=== PATIENT | female | born 1960 | race Caucasian/White ===

== ENCOUNTER 2023-07-29 23:33 | Emergency (ER) | payer OTHER, SELFPAY ==
[2023-07-29 23:36] VITALS: BP 173/93; PULSE 100; RESP 18; TEMP 36.8; O2SAT 99
--- NOTE | 2023-07-29 23:53 | PC.NURSE ---
pt presents to ED because patient states this morning while at work she was sitting on the toilet because she felt like she was going to have a bowel movement, pt states she wasn't able to go but then afterwards had a large amount of bright red blood come out and filled the toilet bowel. pt states after that she felt like she was going to pass out and began to feel dizzy and get sweaty but co-worker was with patient and sat her down. patient states that she was able to have a small bowel movement but then diarrhea following. pt states now she keeps having blood gush out throughout the day. pt states she has no hx of gi bleeds in the past. pt is c/o lower abdominal pain at this time.
--- NOTE | 2023-07-29 23:56 | CT_ITS ---
The [address] [address] Patient Name: ROS GARCIA MRN: [id number] date: 1960 Sex: F Assigned Patient Location: ER Current Patient Location: ER Accession/Order Number: [id number] Exam Date: 07/29/2023 23:58 Report Date: 07/30/2023 01:11 At the request of: MARTIN LAMAR Procedure: CT angio abdomen pelvis CT ABDOMEN AND PELVIS WITH CONTRAST: INDICATION: GI BLEEDING. COMPARISON: 08/29/2019. TECHNIQUE:Multiple thin section transaxial slices were acquired through the abdomen and pelvis with intravenous contrast. Coronal and sagittal reconstructed images were reviewed. Images were obtained per CT angiogram protocol. Additional 3-D post processed reconstructed images were reviewed. FINDINGS: LOWER CHEST: The lower chest is unremarkable. LIVER: There are cysts in the left hepatic lobe. GALLBLADDER AND BILIARY SYSTEM: No obvious ductal dilation. No calcified stones. SPLEEN: The spleen is unremarkable. PANCREAS: There is a tiny cyst in the body of the pancreas measuring 4 mm. This was not definitively visualized previously. However, that examination was done without intravenous contrast. ADRENAL GLANDS: The adrenal glands are unremarkable. KIDNEYS AND URETERS: There is no hydronephrosis of the kidneys.No obstructing urologic calcifications are present. VASCULATURE: The abdominal aorta is normal in caliber without aneurysm or dissection. There is mild atherosclerotic plaque distally. The celiac, superior and inferior mesenteric arteries are patent. The renal arteries are patent. PERITONEUM/RETROPERITONEUM: Peritoneum/retroperitoneum is unremarkable. LYMPH NODES: No suspicious lymphadenopathy. GASTROINTESTINAL TRACT: The bowel is normal in caliber.There is diffuse circumferential wall thickening associated with the transverse, descending and sigmoid colon consistent with diffuse colitis.The appendix is not well delineated on this examination and may be absent or diminutive. BLADDER: The urinary bladder is unremarkable. REPRODUCTIVE SYSTEM: The uterus is absent. BODY WALL: There is a tiny fat-containing umbilical hernia. BONES: Minimal retrolisthesis is present at the L5-S1 level. CT/CT angio abdomen pelvis IMPRESSION: 1. Circumferential wall thickening of the transverse, descending and sigmoid colon consistent with colitis. 2. Mild atherosclerotic plaque in the distal abdominal aorta. Unremarkable CT angiogram of the abdominal aorta and mesenteric vessels otherwise. 3. 4 mm size cystic density in the pancreatic body. This could be followed up with surveillance CT imaging to document stability. Electronically authenticated by: TONO STEINER Date: 07/30/2023 01:11
[2023-07-30] MEDS: 0.9 % SODIUM CHLORIDE 1,000 ML 999 ML IV (00:01)
[2023-07-30 00:02] LABS: Basophils Percent Auto 0.2 % (0.2-2.0); Eosinophils Percent Auto 0.4 % (0.9-7.0); Hematocrit 44.6 % (36.0-48.0); Hemoglobin 14.1 g/dL (12.0-16.0); Immature Granulocytes Abs Auto 0.02 10^3/uL (0.00-0.03); Immature Granulocytes Pct Auto 0.2 % (0.0-0.5); Lymphocytes Percent Auto 20.4 % (20.5-60.0); Mean Corpuscular HGB Conc 31.6 g/dL (29.9-35.2); Mean Corpuscular Volume 88.7 fL (81.0-99.0); Mean Platelet Volume 11.8 fL (9.5-13.5); Monocytes Absolute Auto 0.6 10^3/uL (0.3-0.8); Monocytes Percent Auto 5.6 % (1.7-12.0); Neutrophils Absolute Auto 7.1 10^3/uL (1.4-6.5); Neutrophils Percent Auto 73.2 % (43.0-75.0); Platelet Count 232 10^3/uL (150-450); Red Blood Count 5.03 10^6/uL (4.20-5.40); Red Cell Distribution Width 12.9 % (11.0-15.0); White Blood Count 9.7 10^3/uL (4.0-11.0)
[2023-07-30 00:20] LABS: Alanine Aminotransferase 13 U/L (14-59); Albumin Globulin Ratio 1.2; Albumin Level 4.1 g/dL (3.4-5.0); Alkaline Phosphatase 74 U/L (46-116); Anion Gap 9.6; Aspartate Amino Transferase 21 U/L (15-37); Bilirubin Total 0.6 mg/dL (0.2-1.0); Calcium 9.2 mg/dL (8.5-10.1); Carbon Dioxide 27.7 mmol/L (21.0-32.0); Chloride 100 mmol/L (98-107); Estimated GFR (African America >60 (>=60); Estimated GFR (Non-African Ame 56 (>=60); Globulin 3.4 g/dL; Glucose 124 mg/dL (74-106); Potassium 3.3 mmol/L (3.5-5.1); Sodium 134 mmol/L (136-145); Total Protein 7.5 g/dL (6.4-8.2)
[2023-07-30 00:38] VITALS: BP 183/81; PULSE 68; O2SAT 100
[2023-07-30 01:11] VITALS: BP 161/87; PULSE 60; O2SAT 100
--- NOTE | 2023-07-30 01:16 | ED.GENADUL1 ---
HPI - General Adult General Chief complaint: GI Bleed Stated complaint: BLOOD IN STOOL Time Seen by Provider: 07/29/23 23:34 Source: patient Mode of arrival: walk-in History of Present Illness HPI narrative: 63-year-old female to the emergency department with chief complaint of blood in the stool. Patient reports she woke up this morning she had a cramping sensation across her lower abdomen associated with some sweating, she went to the bathroom and she felt like she needed to have a bowel movement. She reports she strained some and passed a small ball of stool and then had some diarrhea. Following this the patient noted that she had some bright red blood in the toilet. She reports that she is continued to have episodes of cramping lower abdominal pain associated with production of a small amount of bright red blood throughout the day today. She is not on any blood thinning medications. She denies any vaginal bleeding, dysuria, urgency, hematuria. She has never had gastrointestinal bleeding before. She denies history of hemorrhoids. Related Data Home Medications Medication Instructions Recorded Confirmed lisinopril 10 tab 07/29/23 mg-hydrochlorothiazide 12.5 mg tablet phentermine 37.5 mg tablet mg 07/29/23 thyroid (pork) 60 mg tablet (BEHAVIORAL HEALTH CONSULTANT mg 07/29/23 Thyroid) Previous Rx's Medication Instructions Recorded dicyclomine 20 mg tablet 20 mg PO QID PRN abdominal 07/30/23 cramping #20 tabs phenylephrine 0.25 %-cocoa butter 1 supp LA TID PRN hemorrhoids #12 07/30/23 88.44 % rectal suppository ea (Preparation H(phenyleph,cocoa buttr)) Allergies Allergy/AdvReac Type Severity Reaction Status Date / Time No Known Drug Allergies Allergy Verified 07/29/23 23:47 Review of Systems ROS Status of ROS 10 or more systems reviewed and unremarkable except as noted in history and below [facility] Social History Smoking status: Never smoker Exam Narrative Exam Narrative: VITALS: I have reviewed the triage vital signs. GENERAL: Well developed, well appearing adult female in no acute distress. NEURO: Alert and oriented. Moves all extremities. Face is symmetric and expressive. EYES: PERRL. No scleral icterus or conjunctival injection. No discharge. HENT: Normocephalic, atraumatic. Hearing is grossly intact. Nares grossly patent and without discharge. Mucous membranes moist. NECK: No JVD. Patient moves neck without restriction. CARDIO: Rhythm regular. Normal rate. No murmur, rub, or gallop. Pulses equal bilaterally in the upper and lower extremity. No lower extremity edema. PULM: Lungs clear to auscultation in all villa. No wheezes, rales, or rhonchi. No conversational dyspnea. No splinting, stridor, or accessory muscle use. GI/: Abdomen is soft and non-tender. Normoactive bowel sounds. EXTREMITIES: Symmetric muscle bulk. No joint swelling. No clubbing, cyanosis, or deformity. SKIN: Warm and dry. Normal turgor. No rash or lesions appreciated. PSYCH: Mood, affect, and interaction is appropriate to the setting. Constitutional Vital Signs, click to edit/add: Last Vital Signs Temp 98.3 F 07/29/23 23:36 Pulse 60 07/30/23 01:11 Resp 18 07/29/23 23:36 BP 161/87 H 07/30/23 01:11 Pulse Ox 100 07/30/23 01:11 O2 Del Method Room Air 07/29/23 23:36 Course Vital Signs Vital signs: Vital Signs Temperature 98.3 F 07/29/23 23:36 Pulse Rate 100 H 07/29/23 23:36 Respiratory Rate 18 07/29/23 23:36 Blood Pressure 173/93 H 07/29/23 23:36 Pulse Oximetry 99 07/29/23 23:36 Oxygen Delivery Method Room Air 07/29/23 23:36 Temperature 98.3 F 07/29/23 23:36 Pulse Rate 60 07/30/23 01:11 Respiratory Rate 18 07/29/23 23:36 Blood Pressure 161/87 H 07/30/23 01:11 Pulse Oximetry 100 07/30/23 01:11 Oxygen Delivery Method Room Air 07/29/23 23:36 Medical Decision Making MDM Narrative Medical decision making narrative: Number and Complexity of Problems Differential Diagnosis: Hemorrhoidal bleeding, diverticulitis, colitis, malignancy MDM Data External documents reviewed: Not applicable My EKG interpretation: Not applicable My CT interpretation: Reviewed, as below My X-ray interpretation: Not applicable My Ultrasound interpretation: Not applicable Decision rules/scores evaluated: Riverside Score for LGIB Discussed with: Not applicable Treatment and Disposition ED Course: 63-year-old female to the emergency department with chief complaint of cramping lower abdominal pain associated with small amounts of bright red blood per rectum. Vital stable, the patient is afebrile. Abdominal examination is benign. Patient is comfortable on exam. Proceed with basic labs, CT scan of the abdomen and pelvis to evaluate for potential sources/active bleeding. Laboratory reviewed and negative. No major abnormalities. Her hemoglobin is normal. Her lactate is normal. CT scan with Incidental pancreatic cyst. There is nonspecific colitis. She has widely patent mesenteric vessels. Riverside Score 7, consider discharge with appropriate precautions. Suspect infectious versus inflammatory colitis. We'll give gastrointestinal follow-up, consider colonoscopy, Bentyl for symptoms. I do not believe that this represents an ischemic colitis. Rectal exam was performed after verbal consent with nurse Janie as meat service team member. hemorrhoids present and appear to be the source of BRBPR based on exam. No active bleeding on exam until hemorrhoid was disturbed then trace amount of BRB. We will treat with phenylephrine suppository. Discussed findings with the patient. Referral was given to Dr. Jakub Torre gastrointestinal. Discussed follow-up for pancreatic cyst. Return precautions were discussed. All questions were answered. Patient was discharged home. Shared decision making: As above Code status: Not addressed during this visit Medical Records Medical records reviewed: Yes I reviewed the patient's medical records Lab Data Lab results reviewed: Yes I reviewed the patient's lab results Labs: Lab Results 07/29/23 Range/Units 23:51 WBC 9.7 (4.0-11.0) 10^3/uL RBC 5.03 (4.20-5.40) 10^6/uL Hgb 14.1 (12.0-16.0) g/dL Hct 44.6 (36.0-48.0) % MCV 88.7 (81.0-99.0) fL MCH 28.0 (26.7-34.0) pg MCHC 31.6 (29.9-35.2) g/dL RDW 12.9 (11.0-15.0) % Plt Count 232 (150-450) 10^3/uL MPV 11.8 (9.5-13.5) fL Neut % (Auto) 73.2 (43.0-75.0) % Lymph % (Auto) 20.4 L (20.5-60.0) % Weakley % (Auto) 5.6 (1.7-12.0) % Eos % (Auto) 0.4 L (0.9-7.0) % Baso % (Auto) 0.2 (0.2-2.0) % Neut # (Auto) 7.1 H (1.4-6.5) 10^3/uL Lymph # (Auto) 2.0 (1.2-3.8) 10^3/uL Weakley # (Auto) 0.6 (0.3-0.8) 10^3/uL Eos # (Auto) 0.0 (0.0-0.7) 10^3/uL Baso # (Auto) 0.0 (0.0-0.1) 10^3/uL Abs Immat Gran (auto) 0.02 (0.00-0.03) 10^3/uL Imm/Tot Granulo (auto) 0.2 (0.0-0.5) % Sodium 134 L (136-145) mmol/L Potassium 3.3 L (3.5-5.1) mmol/L Chloride 100 (98-107) mmol/L Carbon Dioxide 27.7 (21.0-32.0) mmol/L Anion Gap 9.6 BUN 27.0 H (7.0-18.0) mg/dL Creatinine 1.00 (0.55-1.02) mg/dL Est GFR ( Amer) >60 (>=60) Est GFR (Non-Af Amer) 56 L (>=60) BUN/Creatinine Ratio 27.0 Glucose 124 H (74-106) mg/dL Lactate 1.0 (0.4-2.0) mmol/L Calcium 9.2 (8.5-10.1) mg/dL Total Bilirubin 0.6 (0.2-1.0) mg/dL AST 21 (15-37) U/L ALT 13 L (14-59) U/L Alkaline Phosphatase 74 (46-116) U/L Total Protein 7.5 (6.4-8.2) g/dL Albumin 4.1 (3.4-5.0) g/dL Globulin 3.4 g/dL Albumin/Globulin Ratio 1.[address] scan - abdomen: Attestation: I have reviewed the pertinent imaging results. Discharge Plan Discharge Chief Complaint: GI Bleed Clinical Impression: Colitis, Hematochezia, Hemorrhoids Patient Disposition: Home, Self-Care Time of Disposition Decision: 01:39 Condition: Good Mode of Transportation: Private Vehicle Prescriptions / Home Meds: New Preparation H(pe,cb) 0.25-88.44 % suppository 1 supp LA TID PRN (Reason: hemorrhoids) Qty: 12 0RF dicyclomine 20 mg tablet 20 mg PO QID PRN (Reason: abdominal cramping) Qty: 20 0RF No Action phentermine 37.5 mg tablet lisinopril-hydrochlorothiazide 10-12.5 mg tablet thyroid (pork) [BEHAVIORAL HEALTH CONSULTANT Thyroid] 60 mg tablet Print Language: Persian Instructions: Rectal Bleeding (ED), Colitis (ED) Additional Instructions: Follow-up to discuss your GI bleeding and incidentally visualized pancreatic cyst. Return with worsening symptoms as discussed. Stand Alone Forms: Portal Instructions Referrals: Physician,Non-Staff, MD [Primary Care Provider] - 1 week (Dr. Call (Gastroenterology) [place] [address] Main: [phone])
[2023-07-30] MEDS: DICYCLOMINE HCL 20 MG/2 ML VIAL IM (01:45)
== END 2023-07-30 01:52 | disposition home or self-care (01) ==
PROVIDERS: Emergency Provider Student in an Organized Health Care Education/Training Program
DX: K64.9 Unspecified hemorrhoids (principal); K52.9 Noninfective gastroenteritis and colitis, unspecified; K92.1 Melena; Z79.899 Other long term (current) drug therapy
CPT/HCPCS: 36415; 74174; 80053; 83605; 85025; 96360; 96361; 96372; 99284; J0500; Q9967

== ENCOUNTER 2025-05-20 10:14 | Outpatient (OUT) | payer OTHER, SELFPAY ==
--- OUTSIDE RECORDS SUMMARY | 2025-05-20 10:28 | XMS_ITS | Clinical Summary ---
Demographics Address [address] [place] [address] Home Phone Mobile Phone Email Address Preferred Language Nauruan Marital Status Nondenominational Affiliation Unknown Race White Ethnic Group Not or Lati no Author Organization [facility] Address [address], [address] [place] [address] Care Team Providers Care Inside Tester Name Role Phone Elin Nelson MD Primary Care Provider Unavailab le Allergies No known active allergies Medications ADVAIR DISKUS 100-50 MCG/DOSE diskus inhaler 11 09/15/2015 Acti ve levothyroxine (SYNTHROID) 88 MCG tablet 1 09/13/2015 Active liothyronine (CYTOMEL) 5 MCG tablet 4 09/16/2015 Active Albuterol Sulfate (PROVENTIL HFA IN) Inhale into the lungs Active cetirizine (ZYRTEC) 10 MG tablet Take 10 mg by mouth daily Active calcium-vitamin D (OSCAL-500) 500-200 MG-UNIT per tablet Take 1 tablet by mouth daily Active lisinopril-hydro chlorothiazide (PRINZIDE;ZESTOR ETIC) 10-12.5 MG per tablet Take 1 tablet by mouth daily Active loratadine (CLARITIN) 10 MG tablet Take 10 mg by mouth daily Active lisinopril (PRINIVIL;ZESTRI L) 5 MG tablet TAKE 1 TABLET BY MOUTH EVERY DAY 12/20/2021 Active Active Problems No known active problems Family History Medical History Relation Name Comments Cervical Cancer Mother Lung Cancer Mother Relation Name Status Comments Brother Alive Father Alive Mother Sister Alive Social History Tobacco Use Types Packs/Day Years Used Date Smoking Tobacco: Never Smokeless Tobacco: Never Alcohol Use Standard Drinks/Week Comments No 0 (1 standard drink = 0.6 oz pur e alcohol) Comments No Sex and Gender Information Value Date Recorded Sex Assigned at Not on file Legal Sex Female 11:26 AM EDT Gender Identity Not on file Sexual Orientation Not on file Last Filed Vital Signs Vital Sign Reading Time Taken Comments Blood Pressure 114/70 02/21/2022 10:38 AM EDT Pulse - - Temperature - - Respiratory Rate - - Oxygen Saturation - - Inhaled Oxygen Concentration - - Weight 84.8 kg (187 lb) 02/21/2022 10:38 AM EDT Height 165.1 cm (5' 5 ) 02/21/2022 10:38 AM EDT Body Mass Index 31.12 02/21/2022 10:38 AM EDT Plan of Treatment Not on file Insurance [place] Care Teams Inside Tester Relationship Specialty Start Date End Date Elin Nelson MD [address] [facility] [place] [address] PCP - General 10/31/17
--- OUTSIDE RECORDS SUMMARY | 2025-05-20 10:28 | XMS_ITS | Encounter Summary ---
Author Organization [facility] Address [address] [place] [address] Care Team Providers Care Gas Refrigerator Servicer Name Role Phone Brandyn Walters MD Primary Care Provider [phone] Encounter Details Date Type Department Care Team (Late st Contact Info) Description 05/16/2025 Orders Only [facility] [address] [place] [address] Bharti De La Torre Preop examination Social History Tobacco Use Types Packs/Day Years Used Date Smoking Tobacco: Never Smokeless Tobacco: Never Alcohol Use Standard Drinks/Week Comments Yes 2 (1 standard drink = 0.6 oz pur e alcohol) Caffeine intake: coffee Social Connection and Isolat ion Panel [NHANES] Answer Date Recorded In a typical week, how many times do you talk on the phone with family, friends, or neighbors? Once a week 12/18/2023 How often do you get togethe r with friends or relatives? Twice a week 12/18/2023 How often do you attend [facility] or mormon services? More than 4 times per year 12/18/2023 Active Member of Clubs or Organizations Not on f ile 12/18/2023 Attends Club or Organization Meetings Not on dusty e 12/18/2023 Are you , , di vorced, , never , or living with a partner? 12/18/2023 AUDIT-C Answer Date Recorded Q1: How often do you have a drink containing alc ohol? 2-4 times a month 12/18/2023 Q2: How many drinks containi ng alcohol do you have on a typical day when you are drinking? 1 or 2 12/18/2023 Q3: How often do you have si x or more drinks on one occasion? Less than monthly 12/18/2023 Overall Financial Resource Strain (CARDIA) Answe r Date Recorded How hard is it for you to pa y for the very basics like food, housing, medical care, and heating? Somewhat hard 12/18/2023 [facility] Renick of Occupat ional Health - Occupational Stress Questionnaire Answer Date Recorded Do you feel stress - tense, restless, nervous, or anxious, or unable to sleep at night because your mind is troubled all the time - these days? Only a little 12/18/2023 Exercise Vital Sign Answer Date Recorde d Days of Exercise per Week Not on file 2023 On average, how many minutes do you engage in exercise at this level? 60 min 12/18/2023 Hunger Vital Sign Answer Date Recorded Within the past 12 months, y ou worried that your food would run out before you got the money to buy more. Sometimes true Within the past 12 months, t he food you bought just didn't last and you didn't have money to get more. Sometimes true PRAPARE - Transportation Answer Date Re corded In the past 12 months, has l ack of transportation kept you from medical appointments or from getting medications? No 12/18/2023 Lack of Transportation (Non-Medical) Not on file 12/18/2023 Housing Stability Vital Sign Answer Oscar e Recorded In the last 12 months, was t here a time when you were not able to pay the mortgage or rent on time? No 12/18/2023 In the last 12 months, how many places have you lived? 1 12/18/2023 In the last 12 months, was t here a time when you did not have a steady place to sleep or slept in a half-way (including now)? No 12/18/2023 Comments No Sex and Gender Information Value Date Recorded Sex Assigned at Not on file Legal Sex Female 7:09 PM EDT Gender Identity Not on file Sexual Orientation Not on file documented as of this encounter Plan of Treatment Upcoming Encounters Date Type Department Care Team (Late st Contact Info) Description 05/30/2025 9:10 AM EDT Office Visit [facility] [address] [place] [address] Yousif Lomax DPM [address] [facility] [address] [place] [address] 06/06/2025 4:00 PM EDT Office Visit [facility] [address] [facility] [address] [place] [address] Bogdan Marques MD [address] [place] [address] (Fax) 06/09/2025 4:00 PM EDT Office Visit [facility] [address] [facility] [address] [place] [address] Bogdan Marques MD [address] [place] [address] (Fax) 06/15/2025 1:50 PM EDT Office Visit [facility] [address] [place] [address] Yousif Lomax DPM [address] [facility] [address] [place] [address] Scheduled Orders Name Type Priority Associated Diagnoses Orde r Schedule Basic metabolic panel Lab Routine Preop examination Expected: 05/16/2025 (Approximate), Expires: 07/17/2025 CBC and differential Lab Routine Preop examination Expected: 05/16/2025 (Approximate), Expires: 07/17/2025 ECG 12 lead ECG Routine Preop examination Expected: 05/16/2025 (Approximate), Expires: 05/16/2026 documented as of this encounter Visit Diagnoses Diagnosis Preop examination Unspecified pre-operative examination documented in this encounter Care Teams Gas Refrigerator Servicer Relationship Specialty Start Date End Date Brandyn Walters MD [address] [place] [address] PCP - General Family Medicine 04/24/23 documented as of this encounter
--- OUTSIDE RECORDS SUMMARY | 2025-05-20 10:28 | XMS_ITS | Clinical Summary ---
Author Organization [facility] Address [address] [place] [address] Care Team Providers Care Medical Doctor Md Name Role Phone Brandyn Walters MD Primary Care Provider [phone] Allergies No known active allergies Medications lisinopril-hydr oCHLOROthiazide 10-12.5 MG tablet Take 1 tablet by mouth in the morning. Active Fluticasone-Otto meterol (Advair Diskus) 500-50 MCG/ACT aerosol powder Inhale 1 puff 1 (one) time each day Active Calcium Carbonate-Vit D-Min (Calcium 1200) 7095-3386 MG-UNIT chewable tablet Chew 1 tablet Daily Active omega-3 (Fish Oil) 1000 MG capsule Take 1,000 mg by mouth Daily Active phentermine (Adipex-P) 37.5 MG tablet Take 37.5 mg by mouth in the morning. Take before meals. 06/11/2024 Active thyroid (GLASS BREAKER Thyroid) 60 MG tabletIndicatio ns:Postsurgical hypothyroidism, ESS (euthyroid sick syndrome) Take 1 tablet (60 mg) by mouth in the morning and 1 tablet (60 mg) in the evening. Take before meals. 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 Chronic fatigue 04/30/2023 Mild intermittent acute asth matic bronchitis with acute exacerbation 04/30/2023 Nuclear senile cataract 04/30/2023 Osteoarthritis of knee 04/30/2023 Overweight (BMI 25.0-29.9) 04/30/2023 Resolved Problems Problem Noted Date Diagnosed Date Resolved Date Arthritis of left knee 04/30/202312/22 Constipation 04/30/2023 12/22/2023 Kidney stone 04/30/2023 12/22/2023 Morbid obesity due to excess calories 04/30/2023 12/22/2023 Polydipsia 04/30/2023 12/22/2023 Proptosis 04/30/2023 12/22/2023 Encounters Date Type Department Care Team Description 05/16/2025 Orders Only [facility] [address] [place] [address] Bharti De La Torre Preop examination 05/04/2025 3:40 PM EDT Office Visit [facility] [address] [place] [address] Yousif Lomax DPM Neoplasm of uncertain behavior of skin (Primary Dx); Acquired deformity of left toe; Contracture of left ankle 05/04/2025 Telephone [facility] [address] [place] [address] Yousif Lomax DPM Procedure 05/04/2025 Bamboo flowsheet [facility] [address] [place] [address] Yousif Lomax DPM from Last 3 Months Family History Medical History Relation Name Comments Cervical cancer Mother Lung cancer Mother Relation Name Status Comments Brother x1 Daughter Alive x3 Father Alive Mother Sister x1 Social History Tobacco Use Types Packs/Day Years Used Date Smoking Tobacco: Never Smokeless Tobacco: Never Tobacco Cessation:Counseling Given: Yes Alcohol Use Standard Drinks/Week Comments Yes 2 [...] week 12/18/2023 How often do you attend [facility] or catholic services? More than 4 times per year [...] medical care, and heating? Somewhat hard 12/18/2023 [facility] Melbeta of Occupat ional Health - Occupational Stress [...] place to sleep or slept in a retirement (including now)? No 12/18/2023 Comments No Sex and Gender Information Value Date Recorded Sex Assigned at Not on file Legal Sex Female 7:09 PM EDT Gender Identity Not on file Sexual Orientation Not on file Last Filed Vital Signs Vital Sign Reading Time Taken Comments Blood Pressure 159/76 05/05/2024 9:54 AM EDT Pulse 79 05/05/2024 9:54 AM EDT Temperature 36.8 C (98.2 F) 05/05/2024 9:54 AM EDT Respiratory Rate 16 05/04/2025 3:23 PM EDT Oxygen Saturation - - Inhaled Oxygen Concentration - - Weight 76.2 kg (168 lb) 05/04/2025 3:23 PM EDT Height 162.6 cm (5' 4 ) 05/04/2025 3:23 PM EDT Body Mass Index 28.84 05/04/2025 3:23 PM EDT Plan of Treatment Upcoming Encounters Date Type Department Care Team ([facility] st Contact Info) Description 05/30/2025 9:10 AM EDT Office Visit [facility] [address] [place] [address] Yousif Lomax DPM [address] [address] 06/06/2025 4:00 PM EDT Office Visit [facility] [address] [address] Bogdan Marques MD [address] [place] [address] [place] [address] (Fax) 06/09/2025 4:00 PM EDT Office Visit [facility] [address] [address] Bogdan Marques MD [address] [place] [address] [address] (Fax) 06/15/2025 1:50 PM EDT Office Visit [facility] [address] [place] [address] Yousif Lomax, URBANM [address] [address] Insurance [facility] [place] [address] Care Teams Medical Doctor Md Relationship Specialty Start Date End Date Brandyn Walters MD [address] [place] [address] PCP - General Family Medicine 04/24/23
--- OUTSIDE RECORDS SUMMARY | 2025-05-20 10:28 | XMS_ITS | Encounter Summary ---
Author Organization [facility] Address [address] [place] [address] Care Team Providers Care Warble Saw Operator Name Role Phone Brandyn Walters MD Primary Care Provider [phone] Reason for Visit * Reason Onset Date Comments Procedure 05/04/2025 Encounter Details Date Type Department Care Team ([facility] st Contact Info) Description 05/04/2025 Telephone [facility] [address] [facility] [address] [place] [address] Yousif Lomax, DPKarl [address] [facility] [address] [place] [address] Procedure Social History Tobacco Use Types Packs/Day Years [...] week 12/18/2023 How often do you attend chur ch or orthodoxy services? More than 4 times per year [...] medical care, and heating? Somewhat hard 12/18/2023 [facility] - Occupational Stress [...] place to sleep or slept in a long term (including now)? No 12/18/2023 Comments No Sex and Gender Information Value Date Recorded Sex Assigned at Not on file Legal Sex Female 7:09 PM EDT Gender Identity Not on file Sexual Orientation Not on file documented as of this encounter Miscellaneous Notes * Telephone Encounter - Elvia Aparicio MA - 05/18/2025 11:55 AM EDT Per call from [facility] - The codes 22429/49640/04597 were approved and valid 06/08/25 - 09/06/25. Approval #: [id number] * Telephone Encounter - Bharti De La Torre - 05/16/2025 1:42 PM EDT Case is scheduled for 06-08 Per [facility], policy is active and [facility] and [employer] are in network. Patient has met 0 of individual and oop deductible. Codes 35886, 11285, 83176 required prior authorization. Auth was submitted with office notes via [facility] portal. Tracking#: [id number] PST orders were sent to [facility]. Patient saw PCP 05/13 for clearance Pre op and post op on schedule. Surgery scheduled on both portals. Demographics,insurance card, office notes and sx form uploaded to [facility] portal. * Telephone Encounter - Bharti De La Torre - 05/16/2025 11:44 AM EDT Called patient and LMAM. * Telephone Encounter - Yousif Lomax DPM - 05/04/2025 4:17 PM EDT [facility]OSPITAL[facility] DATE-- near future PCP: NITIN Edmondson DIAGNOSIS WITH PROCEDURES 1) left great toe digital deformity with exostosis with left 2nd digit hammertoe deformity with neoplasm of skin x5 to the left sub 5th metatarsal region with left great toe Ramiro osteotomy and exostectomy with left 2nd toe PIPJ arthrodesis with K-wire and excision of lesions x5 to the left foot less than 0.5 cm per lesion 14025/ M20.62 M20.62/09757 D48.5/ 78789 Approximate case length: 1 hour SPECIAL NEEDS FOR CASE-- : NWB PT CRUTCH OR WALKER TRAINING NEEDED? NO WEIGHT BEARING STATUS-- nonweightbearing left foot Ultram Radiographs on preop documented in this encounter Plan of Treatment Upcoming Encounters Date Type Department Care Team (Late st Contact Info) Description 05/30/2025 9:10 AM EDT Office Visit [facility] [address] [place] [id number] Yousif Lomax DPM [address] [facility] 5 [place] [address] 06/06/2025 4:00 PM EDT Office Visit [facility] [address] [facility] [address] [place] [address] Bogdan Marques MD [address] [facility] [address] [place] [address] (Fax) 06/09/2025 4:00 PM EDT Office Visit [facility] [address] [facility] [address] [place] [address] Bogdan Marques MD [address] [address] (Fax) 06/15/2025 1:50 PM EDT Office Visit [facility] [address] [place] [address] Yousif Lomax DPM [address] [address] documented as of this encounter Visit Diagnoses Not on filedocumented in this encounter Care Teams Warble Saw Operator Relationship Specialty Start Date End Date Brandyn Walters MD [address] [place] [address] PCP - General Family Medicine 04/24/23 documented as of this encounter
[2025-05-20 13:10] LABS: Free T3 3.32 pg/mL (2.18-3.98); Thyroid Stimulating Hormone 13.851 uIU/mL (0.358-3.740)
[2025-05-25 15:08] LABS: Reverse T3, Serum 13.6 ng/dL (9.2-24.1)
== END 2025-05-20 10:15 | disposition home or self-care (01) ==
LOC: LAB 10:26
PROVIDERS: PCP Nurse Practitioner; Visit Provider Family Medicine
DX: E07.81 Sick-euthyroid syndrome (principal); R53.82 Chronic fatigue, unspecified; E89.0 Postprocedural hypothyroidism
CPT/HCPCS: 36415; 84439; 84443; 84480; 84481; 84482

== ENCOUNTER 2025-05-20 10:31 | Outpatient (OUT) | payer OTHER, SELFPAY ==
--- NOTE | 2025-05-20 10:40 | ECG_ITS ---
[facility] Test Date: 2025-05-20 Pat Name: ROS GARCIA Department: Room: - Gender: Female Boot Maker: : 1960 Requested By: TAWANNA BAUMAN Order Number: [id number] Reading MD: ERIKA LUNA M.D. Measurements Intervals [place] Rate: 69 P: 83 LA: 144 QRS: 75 QRSD: 89 T: 74 QT: 361 QTc: 387 Interpretive Statements SINUS RHYTHM Normal ECG No previous ECG available for comparison Electronically Signed On 05-21-2025 8:16:46 EDT by ERIKA LUNA M.D.
[2025-05-20 11:24] LABS: Hematocrit 40.0 % (36.0-48.0); Hemoglobin 13.1 g/dL (12.0-16.0); Immature Granulocytes Abs Auto 0.01 10^3/uL (0.00-0.03); Immature Granulocytes Pct Auto 0.2 % (0.0-0.5); Lymphocytes Absolute Auto 1.5 10^3/uL (1.2-3.8); Mean Corpuscular HGB Conc 32.8 g/dL (29.9-35.2); Mean Corpuscular Hemoglobin 28.5 pg (26.7-34.0); Mean Corpuscular Volume 87.1 fL (81.0-99.0); Platelet Count 214 10^3/uL (150-450); Red Blood Count 4.59 10^6/uL (4.20-5.40); White Blood Count 4.8 10^3/uL (4.0-11.0)
[2025-05-20 12:10] LABS: Anion Gap 14.8; Blood Urea Nitrogen 20.0 mg/dL (7.0-18.0); Calcium 9.5 mg/dL (8.5-10.1); Carbon Dioxide 28.0 mmol/L (21.0-32.0); Chloride 103 mmol/L (98-107); Estimated GFR (African America >60 (>=60 mL/min/1.73m^2); Estimated GFR (Non-African Ame >60 (>=60 mL/min/1.73m^2); Glucose 113 mg/dL (74-106); Potassium 3.8 mmol/L (3.5-5.1); Sodium 142 mmol/L (136-145)
== END 2025-05-20 10:32 | disposition home or self-care (01) ==
LOC: LAB 10:32
PROVIDERS: PCP Nurse Practitioner
DX: Z01.818 Encounter for other preprocedural examination (principal); E07.81 Sick-euthyroid syndrome; R53.82 Chronic fatigue, unspecified; E89.0 Postprocedural hypothyroidism
CPT/HCPCS: 36415; 80048; 84439; 84443; 84480; 84481; 84482; 85025; 93005